=== PATIENT | female | born 1930 | race American Indian/Alaskan Native ===

== ENCOUNTER 2018-02-06 06:12 | Day surgery (SDC) | payer MEDICARE ==
[2018-02-01 07:15] VITALS: BMI 33.8
--- NOTE | 2018-02-04 01:59 | HP ---
REASON FOR ADMISSION: Left and right heart cath, possible angioplasty, abnormal stress test, aortic stenosis, mitral regurgitation. BRIEF CLINICAL HISTORY: An 87-year-old female with a past medical history significant for coronary artery disease, status PTCA of RCA and circumflex artery on 12/16/2014, came for followup, complaining of chest pain and shortness of breath. The patient underwent a stress test that is abnormal. The patient is scheduled for elective cardiac cath and possible angioplasty. PAST MEDICAL HISTORY: Significant for coronary artery disease, gout, hypertension, hyperlipidemia. History of coronary artery disease, status post PTCA of RCA and circumflex on 12/16/2014. RECENT CARDIAC WORKUP: Patient had PTCA with a stent in the mid circumflex and proximal RCA dated 12/16/2014. At that time, no significant gradient across the aortic valve noted. At that time, the right heart catheterization revealed RA 5 to 6, RV 45/5, PA 45/20, mean PA was 28, pulmonary capillary wedge 12 to 13, PVR 5 Wood units, cardiac output 3-5 liter per minutes consistent with primary pulmonary hypertension. At that time, 2-vessel critical disease involving mid circumflex, 95% stenosis in the proximal RCA which is stented. Ayrf-iz-fnofakvo disease in LAD dated 12/16/2014. The patient had a recent stress test on 01/18/2018, that revealed an ejection fraction of 77%, abnormal myocardial perfusion study, partially reversible inferior inferolateral defect suggestive of ischemia. When compared from the previous study dated 11/06/2004, there is a resolution in the anterior defect and previously partial-reversible inferior defect appeared more reversible. The patient had echocardiography on 01/18/2018, that revealed ejection of 55% to 60%, [id number] aortic regurgitation, severe valvular aortic stenosis, mitral regurgitation moderate to severe, mild tricuspid regurgitation, RV systolic pressure 30. SOCIAL HISTORY: Denies smoking. Denies any history of alcohol abuse. CURRENT MEDICATIONS: Patient is taking valsartan/hydrochlorothiazide one tablet daily, rosuvastatin 20 mg daily, Tradjenta 5 mg daily, aspirin 81 daily, Coreg 3.125 mg daily. ALLERGIES: NO KNOWN DRUG ALLERGY. REVIEW OF SYSTEMS: As per HPI. PHYSICAL EXAMINATION: GENERAL: Height of the patient is 5 feet 2 inches, weight of the patient is 180 pounds, body mass index 33 kg/m2. HEENT: PERRLA. Extraocular muscles intact. NECK: Supple. No carotid bruits or thyromegaly. CHEST: Clear to auscultation. HEART: S1 and S2, regular. ABDOMEN: Soft. EXTREMITIES: Clubbing and cyanosis negative. LABORATORY DATA: Blood workup pending. IMPRESSION: An 87-year-old female with past medical history significant for coronary artery disease, status post percutaneous transluminal coronary angioplasty of circumflex and right coronary artery in 12/2014, recent stress test with abnormal inferior defect suggestive of ischemia. Also the patient has moderate aortic stenosis and moderate to severe mitral regurgitation. RECOMMENDATIONS: We will follow the blood workup within the acceptable limit. We will proceed for right heart cardiac catheterization and possible angioplasty. Further recommendations after cardiac catheterization. We will follow with you. Thank you, Dr. Franz, for providing us the opportunity in taking care of patient, Katia Malave. Kenan Hector MD
[2018-02-06] MEDS ORDERED: Lidocaine 2% PF (10 ml) Amp ONE (06:47)
[2018-02-06 07:06] VITALS: RESP 20
[2018-02-06 07:12] LABS: BASO # 0.04 K/mm3 (0.0-2.0); BASO % 0.5 % (0.0-3.0); EOS # 0.1 (0.0-0.7); EOS % 1.6 % (1.5-5.0); GRAN # 4.57 (1.4-6.5); GRAN % 62.2 % (50.0-68.0); HEMOGLOBIN 12.8 g/dL (12.0-16.0); LYMPH # 1.9 (1.2-3.4); LYMPH % 26.4 % (22.0-35.0); MEAN CELL VOLUME 81.2 fl (80.0-105.0); MEAN CORPUSCULAR HEMOGLOBIN 26.8 pg (25.0-35.0); MEAN PLATELET VOLUME 10.2 fl (7.0-11.0); MONO # 0.7 (0.1-0.6); MONO % 9.3 % (1.0-6.0); RBC 4.78 10^6/uL (3.5-6.1); RED CELL DISTRIBUTION WIDTH 14.2 % (11.5-14.5); WHITE BLOOD COUNT 7.4 10^3/ul (4.5-11.0)
[2018-02-06 07:18] LABS: INR 1.07; PROTHROMBIN TIME 12.3 SECONDS (9.4-12.5)
[2018-02-06] MEDS ORDERED: Phenylephrine 10 mg/ml Inj ONE (07:21)
[2018-02-06 07:22] LABS: PARTIAL THROMBOPLASTIN TIME 33.2 Seconds (25.1-36.5)
[2018-02-06 07:28] LABS: CALCIUM 10.1 mg/dL (8.4-10.5)
[2018-02-06] MEDS ORDERED: Iodixanol 320 mg/ml 150 ml Bottle IV ONE (07:43)
[2018-02-06] MEDS ORDERED: Midazolam 2 MG/2 ML VIAL ONE (08:01)
[2018-02-06] MEDS ORDERED: Iohexol 350mgl/ml 50 ML ONE (08:04)
[2018-02-06] MEDS ORDERED: Sodium Chloride 0.9% 1,000 ML IV SCH (09:30)
--- NOTE | 2018-02-06 09:36 | CPOSTOP ---
DATE: 02/06/2018 CARDIOVASCULAR LAB POST PROCEDURE NOTE DICTATING PHYSICIAN: Kenan Hector MD. GRAPE GROWER: VANESSA Cole. TYPE OF ANESTHESIA: Moderate conscious sedation, total 1 mg of Versed, 50 of fentanyl given. PRE-PROCEDURE DIAGNOSES: Coronary artery disease, unstable angina, chest pain, aortic stenosis, preoperative clearance, abnormal stress test. PROCEDURE PERFORMED: Complete left and right heart catheterization. FINDINGS: 1. Nonobstructive coronary artery disease, patent stent in the circ, patent stent in the RCA. 2. Moderate aortic stenosis. 3. Pulmonary hypertension. FINAL DIAGNOSES: Nonobstructive coronary artery disease, aortic stenosis, pulmonary hypertension. POST PROCEDURE CONDITION: Post procedure, the patient's condition is stable. VASCULAR ACCESS SITE: Right femoral artery and right femoral vein. CLOSURE DEVICE: Mynx in artery and vein both. TOTAL RADIATION DOSE: 6107.4 milligray unit. FLUORO TIME: 4.5 minutes. Kenan Hector MD
[2018-02-06 09:53] VITALS: TEMP 97.6
--- NOTE | 2018-02-06 11:06 | CARD ---
APPROVED REPORT Date of service: 02/06/2018 EKG Measurement Heart [id number] <Conclusion> Normal sinus rhythm Normal ECG
[2018-02-06 13:34] VITALS: BP 182/94; PULSE 75; O2SAT 99
[2018-02-06 14:11] LABS: CALCIUM 10.1 mg/dL (8.4-10.5)
--- NOTE | 2018-02-06 16:38 | CARD ---
APPROVED REPORT Date of service: 02/06/2018 Procedure(s) performed: Complete Heart Catheterization HISTORY The patient is a 87 year-old female with a history of : most recent EF: 77%. (EF Method: RADIONUCLIDE), peripheral vascular disease, diabetes mellitus with oral treatment , previous diagnostic cath, previous PCI (The PCI date was 12/16/2014), hypertension , dyslipidemia , Pre-op abnormal stress test and worseing , Hx of pulmonary HTN with PVR 5 singh unit by cath on 12/16/2014.. INDICATION The indication(s) include : positive stress test. CASE TECHNIQUE The patient was brought electively to the Cardiac Catheterization Laboratory in a fasting state and was prepped and draped in a sterile manner. The right femoral groin was infiltrated with 2% Lidocaine subcutaneous anesthesia. A 6 Fr x 11 cm Lizzette sheath was inserted into the right femoral artery without difficulty. Coronary angiography was performed using coronary diagnostic catheters. The left coronary system was accessed and visualized with a Diagnostic , 6F JL4 CATH DXT 100 CM catheter. The right coronary system was accessed and visualized with a Diagnostic ,6F JR 4 CATH DXT 100 CM catheter. The left ventricle was accessed and visualized with a 6F PIGTAIL 145 CATH DXT 110 CM catheter. Left ventricular/Aortic Valve gradient assessed on pullback. Left ventriculogram was performed in SANCHEZ projection. A Right Heart Catheterization was performed with a 7 Fr. [place]-Larry catheter and pressure were recorded. A 7 sheath was inserted into the right femoral vein without difficulty. Coronary angiography was performed using coronary diagnostic catheters. Pre-demployment femoral angiogram was performed . The patient tolerated the procedure well and there were no complications associated with the procedure. Vessel Analysis The patient's coronary anatomy is co-dominant. The left main coronary artery is a medium size vessel with diffuse calcification noted throughout this vessel and without significant stenosis. The left main bifurcates to the left anterior descending and circumflex. The left anterior descending artery is a medium size vessel with diffuse calcification noted throughout this vessel and without significant stenosis. There is a 40% stenosis in the mid segment. The first diagonal branch is a medium size vessel with diffuse calcification noted throughout this vessel and without significant stenosis. The second diagonal branch is a medium size vessel with diffuse calcification noted throughout this vessel and without significant stenosis. The circumflex artery is a large size vessel with diffuse calcification noted throughout this vessel and without significant stenosis. The first obtuse marginal branch is a small size vessel with diffuse calcification noted throughout this vessel and without significant stenosis. The second obtuse marginal branch is a small size vessel with diffuse calcification noted throughout this vessel and without significant stenosis. The left posterior descending artery is a medium size vessel with diffuse calcification noted throughout this vessel and without significant stenosis. The right coronary artery is a medium size vessel with diffuse calcification noted throughout this vessel and without significant stenosis. very tortous vessel There is a 50-55% stenosis in the mid segment. patent stent in proximal segment The right posterior descending artery is a small size vessel with diffuse calcification noted throughout this vessel and without significant stenosis. The right posterolateral branch is a small size vessel with diffuse calcification noted throughout this vessel and without significant stenosis. Left Ventricle The left ventricle is normal in size with normal contractility. There was no cardiomyopathy. The left ventricular ejection fraction is estimated to be 60-65%. The left ventricular end diastolic pressure is 20 mmHg. 16 mm gradient on pull back peak to peak across aortic valve. Right Heart Cath Findings The Right Atrial Pressure is 10-12 mmHg. The Right Ventricular Pressure is 80/10 mmHg. The Pulmonary Artery Pressure is 75/30 mmHg. with a mean of 38 The Pulmonary Catheter Wedge Pressure is 22 mmHg. PVR 4.6 Wood units. The cardiac output and index were assessed using thermo dilution. The Cardiac Output is 3.47 L/min. The Cardiac index is 1.88 L/min/m2. Conclusion Patent stent in Cx and RCA Mioderate DSiz in mid LAD and Mid RCA Preserved LV Fx. Ef-60-65%, EDP 20 mmof Hg. Peak gradient across aortic Valve 16 mm of Hg, with LASHAWN 0.9-1.0 cm2 C/w Moderate RHC;Ra-10-12,RV-80/10, PA-75/30 with a mean of 38, PCW-22, Co-3.47, CI-1.88, PVR-4.6 Singh unit. Only 30 cc Contrast used. Recommendations Aggressive Medical TherapyCardiac Risk Reduction Program Weight Loss Reduction Program Treatment for pulmonary HTN, consider starting Revatio 20mg po TID as BP is tolerated Continue diuretics as renal fx is tolerated. F/u SMA-7 after hydration before pt. goes home and in one week with you Pt. is cleared to go for eye surgery ( cataract) with moderate risk b/c of co-morbidities, but procedure itself a low risk procedure. CC; Kenan Leigh MD.
== END 2018-02-06 15:00 | disposition home or self-care (01) ==
LOC: CATH 06:12
PROVIDERS: ATTEND Internal Medicine Cardiovascular Disease
DX: I25.110 Atherosclerotic heart disease of native coronary artery with unstable angina pectoris (principal); I27.0 Primary pulmonary hypertension; I08.3 Combined rheumatic disorders of mitral, aortic and tricuspid valves; E11.51 Type 2 diabetes mellitus with diabetic peripheral angiopathy without gangrene; I10 Essential (primary) hypertension; E78.5 Hyperlipidemia, unspecified; Z79.84 Long term (current) use of oral hypoglycemic drugs; Z98.61 Coronary angioplasty status
CPT/HCPCS: 36415; 80048; 80061; 85025; 85610; 85730; 86850; 86900; 93005; 93460; 99152; 99153; C1760; C1769; C1894; C2629; J1644; J1940; J2250; J3010; J7030; J7040; Q9967